=== PATIENT | male | born 1955 | race Caucasian/White ===

== ENCOUNTER 2022-01-08 17:41 | Inpatient (IN) | payer MEDICARE ==
[~2022-01-08] VITALS: Ht 157.5 cm; Wt 69.3 kg
[~2022-01-08 17:41] MED LIST: COMPLETE SENIOR1 TA1 PO; NEURONTIN300 MG/CAP PO; NORVASC2.5 MG PO; PRILOSEC 20MG20 MG PO; VASOTEC 10M10 MG/TAB PO; ZOCOR 20MG20 MG PO
[2022-01-08 18:46] LABS: BASO % 0.2 % (0.0-2.0); EOS # 0.1 K/mm3 (0.0-0.7); EOS % 0.5 % (0.0-4.0); GRAN # 11.6 K/mm3 (1.4-6.5); HEMATOCRIT 42.4 % (42.0-52.0); HEMOGLOBIN 14.5 g/dl (13.5-18.0); LYMPH # 0.4 K/mm3 (1.2-3.4); LYMPH % 3.3 % (20.0-51.0); MEAN CELL VOLUME 93 fl (80.0-100.0); MEAN CORPUSCULAR HEMOGLOBIN 32 pg (27-31); MEAN CORPUSCULAR HGB CONC 34 g/dl (33.0-37.0); MEAN PLATELET VOLUME 10.1 fl (7.4-10.4); MONO # 0.7 K/mm3 (0.1-0.6); MONO % 5.5 % (1.7-9.3); PLATELET COUNT 249 K/mm3 (130-400); RED BLOOD COUNT 4.56 M/mm3 (4.20-5.60); REDCELL DISTRIBUTION WIDTH-CV 14.8 % (11.5-14.5)
[2022-01-08 19:03] LABS: ALBUMIN 2.6 gm/dL (3.4-4.8); BILIRUBIN,TOTAL 0.5 mg/dL (0.2-1.2); C-REACTIVE PROTEIN 31.1 mg/dL (0.00-0.50); CALCIUM 8.9 mg/dL (8.4-10.2); CREATININE, serum 0.78 mg/dL (0.72-1.25); POTASSIUM 3.4 mmol/L (3.5-4.5); TOTAL PROTEIN 6.8 gm/dL (6.2-8.1)
[2022-01-08 19:33] LABS: COLLECTION METHOD CLEAN CATCH
[2022-01-08 19:49] LABS: MUCOUS Present (NOT PRESENT); PH 5 (5-8); SQUAMOUS EPITHELIAL None Seen /hpf (0-10); URINE APPEARANCE Clear (CLEAR/HAZY); URINE BACTERIA None Seen /hpf (NONE SEEN); URINE BILIRUBIN Negative (NEGATIVE); URINE BLOOD 1+ (NEGATIVE); URINE COLOR Yellow (YELLOW); URINE GLUCOSE Negative (NEGATIVE); URINE KETONE 2+ (NEGATIVE); URINE LEUKOCYTE ESTERASE Trace (NEGATIVE); URINE NITRATE Negative (NEGATIVE); URINE PROTEIN(semi-quant) Negative (NEGATIVE); URINE RBC 0-2 /hpf (0-2); URINE UROBILINOGEN Negative (NEGATIVE)
[2022-01-08] MEDS ORDERED: FLAGYL500 MG PO (22:08)
[2022-01-08] MEDS ORDERED: LEVAQUIN 750MG750 M1 PO (22:09)
[2022-01-08 22:20] VITALS: BP 118/67; PULSE 90; TEMP 98.7
[2022-01-08 23:40] VITALS: BP 108/59; PULSE 74; TEMP 98.3
--- NOTE | 2022-01-09 01:13 | NUR ---
PT SLEEPING WITH SNORUS RESP.
[2022-01-09 04:16] VITALS: BP 105/56; PULSE 73; TEMP 98.2
[2022-01-09 06:41] LABS: HEMATOCRIT 39.6 % (42.0-52.0); HEMOGLOBIN 13.2 g/dl (13.5-18.0); MEAN CELL VOLUME 95 fl (80.0-100.0); MEAN CORPUSCULAR HEMOGLOBIN 32 pg (27-31); MEAN CORPUSCULAR HGB CONC 33 g/dl (33.0-37.0); MEAN PLATELET VOLUME 11.2 fl (7.4-10.4); PLATELET COUNT 217 K/mm3 (130-400); RED BLOOD COUNT 4.16 M/mm3 (4.20-5.60); REDCELL DISTRIBUTION WIDTH-CV 15.1 % (11.5-14.5)
[2022-01-09 06:53] LABS: C-REACTIVE PROTEIN 25.26 mg/dL (0.00-0.50); CALCIUM 8.3 mg/dL (8.4-10.2); CREATININE, serum 0.66 mg/dL (0.72-1.25); POTASSIUM 3.7 mmol/L (3.5-4.5)
[2022-01-09 07:35] VITALS: BP 131/63; PULSE 80; TEMP 97.9
[2022-01-09 07:52] LABS: BAND 2 % (0-10); EOSINOPHIL 1 % (0-4); LYMPHOCYTE 10 % (20.0-51.0); NEUTROPHILS 84 % (42.0-75.2)
[2022-01-09 07:53] LABS: PLATELET ESTIMATE NORMAL (NORMAL); TARGET CELLS 1+
--- NOTE | 2022-01-09 09:19 | NUR ---
Social Work student met with patient to discuss discharge planning. Patient states that he lives in [place], [place] by himself. The patient sees Dr. Tameka Tomas for primary care, and he receives his medications from [facility]. When asked by social work if he has any problems affording those medications, he said, "I'm gettin' by." Patient does not utilize any durable medical equiptment at home and he is independent with his ADL's. Patient has not filled out a DPOA-HC prior to this hospital visit, and he is not interested in doing one right now. Therefore, SW sought to find next of kin. Patient's parents are , he is not , and he has no kids. Patient has one sister, Avril(ph#[phone]), and three brothers: Karel, Teddy, and Jonh. Discharge plan: Home
--- NOTE | 2022-01-09 09:32 | NUR ---
Initial visit; Patient thanked Intermediate Card Tender for offering God's blessings.
[2022-01-09 11:25] VITALS: BP 126/64; PULSE 78; TEMP 98.5
--- NOTE | 2022-01-09 14:00 | NUR ---
Received report from LAMONTE Loo. Pt resting in bed at this time with complaints of pain 12/26. Pt reports that it does get worse with movement. He states that his pain is the same as it has been, no better/no worse. He is aware that he is to not have anything to eat or drink. Bowel sounds active, and reports passing gas, heart rate regular. IV with fluids infusing. No needs verbalized, call light within reach
--- NOTE | 2022-01-09 14:18 | NUR ---
Assessment completed, alert/oriented, vital signs stable, reports pain is ok at rest/ more pain with ambulation, abd distended but soft and BS+, lungs CTA/ no resp.difficulty, heart RRR/ distal pulses are palpable, denies needs, will continue to monitor
[2022-01-09 15:42] VITALS: BP 142/76; PULSE 73; TEMP 98.7
--- NOTE | 2022-01-09 18:36 | NUR ---
Pt remains the same. Reports that his pain is still the same. He states that sometimes he does not feel any pain and other times it really bothers him. Pt is steady on his feet to the restroom. Pt reports that he is having urges to smoke. Offered to ask for nicotine patch, but pt denies.
--- NOTE | 2022-01-09 19:15 | NUR ---
Bedside shift report received, assumed care for shift leader. Assessment complete. A&Ox3. Denies nausea/shortness of breath. Rating pain 4/10 to abdomen-intermittent cramping. Denies need for intervention but states will call if worsending. D5 1/2NS with 20KCL to right forearm IV-infusing at 100ml/hr. Plan of care discussed for this shift to include meds/pain control/calling for questions/concerns. Verbalizes understanding. Call light in reach.Will monitor.
[2022-01-09 21:03] VITALS: BP 137/74; PULSE 66; TEMP 99.3
[2022-01-10] VITALS (8 sets, daily range): BP systolic 116–148; BP diastolic 66–87; PULSE 70–122; TEMP 98.1–99.4
--- NOTE | 2022-01-10 01:20 | NUR ---
Called with c/o pain to abdomen-described as sharp intermittent pains-rating pain 6/10. Morphine given per dr order.
[2022-01-10 05:52] LABS: HEMATOCRIT 40.7 % (42.0-52.0); HEMOGLOBIN 13.5 g/dl (13.5-18.0); MEAN CELL VOLUME 96 fl (80.0-100.0); MEAN CORPUSCULAR HEMOGLOBIN 32 pg (27-31); MEAN CORPUSCULAR HGB CONC 33 g/dl (33.0-37.0); MEAN PLATELET VOLUME 10.3 fl (7.4-10.4); PLATELET COUNT 294 K/mm3 (130-400); RED BLOOD COUNT 4.23 M/mm3 (4.20-5.60); REDCELL DISTRIBUTION WIDTH-CV 15.1 % (11.5-14.5)
[2022-01-10 06:01] LABS: C-REACTIVE PROTEIN 15.49 mg/dL (0.00-0.50); CREATININE, serum 0.61 mg/dL (0.72-1.25); POTASSIUM 3.3 mmol/L (3.5-4.5)
--- NOTE | 2022-01-10 07:46 | NUR ---
Pt having complaints of increase in pain, now rating 6/10. PRN pain medication given. PT states that pain continues to come and go with intermittent sharp pains. Discussed letting the pain medication start working and him taking a shower. Pt denies any other needs. Pt is quiet and soft spoken.
--- NOTE | 2022-01-10 11:25 | NUR ---
Pt up in the room getting his teeth brushed. He has been in and took a shower. Dr Kumar in to see pt. Pt reports that he is currently not having any pain at all, but does not have an appetite at this time. All questions answered, no needs at this time
--- NOTE | 2022-01-10 12:30 | NUR ---
Pt resting in bed. He is now having complaints of pain. PRN pain medication given. Pt does have visitors in the room. Gave pt ice chips and educated on clear liquid diet. Pt stated he did not want anything other than ice chips
--- NOTE | 2022-01-10 17:13 | NUR ---
Pt resting in bed. Pt does not use call light. Informed him that if he is having increase in pain, to use his call light. Pt appears to be comfortable, but states he is having a lot of pain. Pt appears to be paranoid when in room. He consistently stares out in the allen and is looking around the room. Pt reported that if he had some beer, he would feel better. When asked about alcohol use, pt stated that he does drink beer daily. Pt continus to state that he does not want anything other than the ice chips. Pt also questions if his IV fluids are infusing. He watches the fluid level. PRN pain medication given, call light within reach
--- NOTE | 2022-01-10 22:30 | NUR ---
SECOND IV STARTED TO RT. FOREARM.
--- NOTE | 2022-01-11 02:14 | NUR ---
Patient stating pain is 5/10 and requesting morphine. Morphine administered and will continue to monitor pain level
--- NOTE | 2022-01-11 02:30 | NUR ---
Shift assessment performed. Patient alert and oriented. VSS. Patient here for diverticulitis. PM meds administered. A second IV site was started due to IV ABX and non-compatible fluids running concurrently. Patient is ambulatory to the bathroom and complains of some pain in abdomen, requests morphine when pain rises above a 5. Will continue to monitor pain level.
[2022-01-11 04:07] VITALS: BP 131/73; PULSE 70; TEMP 98.4
[2022-01-11 07:04] LABS: HEMATOCRIT 46.2 % (42.0-52.0); MEAN CELL VOLUME 97 fl (80.0-100.0); MEAN CORPUSCULAR HEMOGLOBIN 31 pg (27-31); MEAN CORPUSCULAR HGB CONC 33 g/dl (33.0-37.0); MEAN PLATELET VOLUME 10.2 fl (7.4-10.4); PLATELET COUNT 346 K/mm3 (130-400); RED BLOOD COUNT 4.77 M/mm3 (4.20-5.60); REDCELL DISTRIBUTION WIDTH-CV 15.1 % (11.5-14.5)
[2022-01-11 07:08] VITALS: BP 143/81; PULSE 85; TEMP 98
[2022-01-11 07:21] LABS: C-REACTIVE PROTEIN 17.78 mg/dL (0.00-0.50); CALCIUM 8.5 mg/dL (8.4-10.2); CREATININE, serum 0.64 mg/dL (0.72-1.25); POTASSIUM 3.5 mmol/L (3.5-4.5)
[2022-01-11 12:48] VITALS: BP 141/80; PULSE 85; TEMP 98.7
--- NOTE | 2022-01-11 14:30 | NUR ---
PATIENT'S 2ND IV SITE WENT BAD. IV REMOVED, SPOKE WITH AND HE WAS OK WITH NOT STARTING ANOTHER IV SITE. GAVE VERBAL PERMISSION TO CHANGE IV FLUIDS FROM D51/2 20K TO NS TO TRY TO PRESERVE CURRENT IV SITE.
[2022-01-11 16:20] VITALS: BP 136/71; PULSE 73; TEMP 98.6
[2022-01-11 19:38] VITALS: BP 132/73; PULSE 71; TEMP 98.7
--- NOTE | 2022-01-11 20:30 | NUR ---
PT IN BED. DENIES PAIN AT THIS TIME. ABD DISTENDED, BS HYPERACTIVE. PT REPORTS LOOSE STOOLS, ASKED TO SAVE NEXT STOOL FOR NURSE TO SEE, VERBALIZED UNDERSTANDING. REPORTS NAUSEA, NO EMESIS. IV SITE TO RFA WITH IVF INFUSING WITHOUT PROBLEM. FLAT AFFECT.
[2022-01-12] VITALS (14 sets, daily range): BP systolic 112–149; BP diastolic 52–80; PULSE 50–79; TEMP 97.6–98.7
--- NOTE | 2022-01-12 00:33 | NUR ---
PT TOLD PCT HE WAS CLOSE TO VOMITING AND WANTS TO GO TO SURGERY "NOW". MEDICATED PT WITH ZOFRAN 4MG IVP AND MORPHINE 2MG IVP AT THIS TIME. DISCUSSED PLAN FOR DR BAR TO SEE PT IN THE AM TO DETERMINE GOING TO SURGERY OR NOT. REASSURED PT HIS VITALS WERE STABLE, HE REPORTS NO FURTHER DIARRHEA, DID ASK PT TO SAVE STOOL IF HE HAS ONE, VERBALIZED UNDERSTANDING. ENCOURAGED PT TO REST.
--- NOTE | 2022-01-12 04:00 | NUR ---
PT REPORTS MILD NAUSEA, NO EMESIS AFTER ZOFRAN GIVEN.
--- NOTE | 2022-01-12 06:00 | NUR ---
PT HAS LOOSE STOOL, FLAKY IN APPEARANCE, SLIGHTLY DARK GREEN IN COLOR, MODERATE AMOUNT. PT REPORTS THIS IS HIS 2ND STOOL FOR THE NIGHT.
[2022-01-12 07:41] LABS: HEMOGLOBIN 13.8 g/dl (13.5-18.0); MEAN CELL VOLUME 96 fl (80.0-100.0); MEAN CORPUSCULAR HEMOGLOBIN 32 pg (27-31); MEAN CORPUSCULAR HGB CONC 33 g/dl (33.0-37.0); MEAN PLATELET VOLUME 9.6 fl (7.4-10.4); PLATELET COUNT 310 K/mm3 (130-400); RED BLOOD COUNT 4.38 M/mm3 (4.20-5.60); REDCELL DISTRIBUTION WIDTH-CV 15.2 % (11.5-14.5)
[2022-01-12 08:04] LABS: C-REACTIVE PROTEIN 11.97 mg/dL (0.00-0.50); CREATININE, serum 0.6 mg/dL (0.72-1.25); POTASSIUM 4.1 mmol/L (3.5-4.5)
--- NOTE | 2022-01-12 19:30 | NUR ---
PT IN BED, HAS MIDLINE DRSG WITH SMALL SHADOWING NOTED, CIRCLED PERIMETER AT THIS TIME. SET UP BUTTON SEWING MACHINE OPERATOR DILAUDID WITH VERIFICATION FROM GLENROY ABURTO. HAS IVF TO LEFT FOREARM, SITE WITHOUT REDNESS OR SWELLING. PT RATING PAIN TO ABD 6/10 BEFORE BUTTON SEWING MACHINE OPERATOR INITIATED. LOPES TO BSD WITH YELLOW URINE.
--- NOTE | 2022-01-12 21:00 | NUR ---
PT REPORTS PAIN 3/10 TO ABD, USING TAPING MACHINE OPERATOR NEEDED. TAKING SIPS/CHIPS WITHOUT NAUSEA. SCDS ON. CALL LIGHT WITHIN REACH. IV ZOSYN INFUSING WITHOUT PROBLEM.
[2022-01-13] VITALS (9 sets, daily range): BP systolic 125–154; BP diastolic 57–80; PULSE 60–72; TEMP 97.8–98.3
--- NOTE | 2022-01-13 05:00 | NUR ---
PT USING ASSOCIATE PROFESSOR OF KINESIOLOGY EFFECTIVELY. DENIES NEEDS AT THIS TIME.
[2022-01-13 06:57] LABS: HEMATOCRIT 42.4 % (42.0-52.0); HEMOGLOBIN 13.7 g/dl (13.5-18.0); MEAN CELL VOLUME 98 fl (80.0-100.0); MEAN CORPUSCULAR HEMOGLOBIN 32 pg (27-31); MEAN CORPUSCULAR HGB CONC 32 g/dl (33.0-37.0); MEAN PLATELET VOLUME 10.7 fl (7.4-10.4); PLATELET COUNT 334 K/mm3 (130-400); RED BLOOD COUNT 4.35 M/mm3 (4.20-5.60); REDCELL DISTRIBUTION WIDTH-CV 15.2 % (11.5-14.5)
[2022-01-13 06:59] LABS: ALBUMIN 2.2 gm/dL (3.4-4.8); BILIRUBIN,TOTAL 0.3 mg/dL (0.2-1.2); CALCIUM 7.5 mg/dL (8.4-10.2); CREATININE, serum 0.61 mg/dL (0.72-1.25); POTASSIUM 4.4 mmol/L (3.5-4.5); TOTAL PROTEIN 5.7 gm/dL (6.2-8.1)
[2022-01-13 10:26] LABS: MAGNESIUM 2.2 mg/dL (1.6-2.6); PHOSPHOROUS 2.6 mg/dL (2.3-4.7)
[2022-01-14] VITALS (10 sets, daily range): BP systolic 146–154; BP diastolic 69–81; PULSE 58–69; TEMP 97.9–99.3
[2022-01-14 06:41] LABS: HEMOGLOBIN 12.9 g/dl (13.5-18.0); MEAN CELL VOLUME 98 fl (80.0-100.0); MEAN CORPUSCULAR HEMOGLOBIN 32 pg (27-31); MEAN CORPUSCULAR HGB CONC 32 g/dl (33.0-37.0); MEAN PLATELET VOLUME 10.5 fl (7.4-10.4); PLATELET COUNT 296 K/mm3 (130-400); RED BLOOD COUNT 4.08 M/mm3 (4.20-5.60); REDCELL DISTRIBUTION WIDTH-CV 15.1 % (11.5-14.5)
[2022-01-14 06:58] LABS: CALCIUM 7.6 mg/dL (8.4-10.2); CREATININE, serum 0.57 mg/dL (0.72-1.25); MAGNESIUM 2.1 mg/dL (1.6-2.6); PHOSPHOROUS 2.4 mg/dL (2.3-4.7); POTASSIUM 3.9 mmol/L (3.5-4.5)
--- NOTE | 2022-01-14 07:15 | NUR ---
Assessment complete. Nasal cannula at 1L/min measuring ETCO2. Skin intact, nares normal. PICC in right arm running clinimix at 42ml/hr. PAULINA wrap covering site, no drainage or redness to extremity. Pulses palpable. IV line placed in left forearm running sodium chloride at 30ml/hr with piperacillin and tazobactam at 25ml/hr. No redness or drainage noted at site. Patient has AIR CARGO GROUND OPERATIONS SUPERVISOR pump with hydropmorphone, patient states he is pushing button about once per hour. Dressing on abdomen intact with quarter size serosanguinous drainage. Marked by previous shift, will continue to monitor. Quick catheter in place with clear, yellow urine draining. CAUTI care provided. Patient has SCDs on, peripheral pulses palpable. Patient is resting comfortable.
--- NOTE | 2022-01-14 10:28 | NUR ---
Agree with student nurses assessment of the patient. A&Ox4. VSS 1L NC O2. Midline incision CDI, with prior drainage site marked by previous shift, no additional drainage noted. IV CDI, fluids infusing. Patient tolerating sips/chips. Reporting having passed gas, but no BM. Call light within reach
--- NOTE | 2022-01-14 20:00 | NUR ---
PT IN BED, IS ALERT AND ORIENTED X4. HAS RT PICC WITH TPN/LIPIDS INFUSING. HAS AGRICULTURE SCIENCE TEACHER DILAUDID NEEDED. LOPES TO BSD WITH YELLOW URINE. MIDLINE INCISION PAPER RULER, BELLA INTACT. PT DENIES FLATUS. SCDS ON.
--- NOTE | 2022-01-14 20:40 | NUR ---
NEW TOOL ROOM ATTENDANT DILAUDID SYRINGE HUNG.
[2022-01-15 00:12] VITALS: BP 138/69; PULSE 66; TEMP 98.1
[2022-01-15 03:42] VITALS: BP 144/77; PULSE 73; TEMP 98.4
--- NOTE | 2022-01-15 05:37 | NUR ---
ASSISTED TO BATHROOM, PT REPORTS FLATUS. HAVING NAUSEA, ZOFRAN GIVEN.
--- NOTE | 2022-01-15 05:52 | NUR ---
NO FLATUS OR BM, ASSISTED BACK TO BED.
[2022-01-15 06:03] LABS: BASO # 0.1 K/mm3 (0.0-0.2); BASO % 0.6 % (0.0-2.0); EOS # 0.4 K/mm3 (0.0-0.7); EOS % 3.8 % (0.0-4.0); GRAN # 7.9 K/mm3 (1.4-6.5); HEMATOCRIT 43.5 % (42.0-52.0); HEMOGLOBIN 14.7 g/dl (13.5-18.0); LYMPH % 9.5 % (20.0-51.0); MEAN CELL VOLUME 94 fl (80.0-100.0); MEAN CORPUSCULAR HEMOGLOBIN 32 pg (27-31); MEAN CORPUSCULAR HGB CONC 34 g/dl (33.0-37.0); MONO # 0.8 K/mm3 (0.1-0.6); MONO % 7.5 % (1.7-9.3); RED BLOOD COUNT 4.63 M/mm3 (4.20-5.60); REDCELL DISTRIBUTION WIDTH-CV 14.9 % (11.5-14.5)
[2022-01-15 06:09] LABS: PLATELET COUNT 411 K/mm3 (130-400)
[2022-01-15 06:38] LABS: CALCIUM 8.2 mg/dL (8.4-10.2); CREATININE, serum 0.6 mg/dL (0.72-1.25); PHOSPHOROUS 3.4 mg/dL (2.3-4.7); POTASSIUM 3.7 mmol/L (3.5-4.5)
[2022-01-15 07:27] VITALS: BP 129/80; PULSE 92; TEMP 98.5
--- NOTE | 2022-01-15 07:42 | NUR ---
PT STATES THAT HE IS FEELING NAUSEOUS BUT PAIN IS MINIMAL, IS SITTING UP IN CHAIR. PT REPORTS PASSING GAS X1 DURING NIGHT. PCT REPORTS THAT PT IS FREQUENTLY BURPING ET STUDENT NURSE REPORTS THAT PT IS DRY HEAVING. PT ENCOURAGED TO LIMIT INTAKE, DIET IS CLEAR LIQUIDS @ THIS TIME. MIDLINE INCISION IS WELL APPROXIMATED WITH BELLA INTACT. TPN INFUSING INTO PICC LINE.
--- NOTE | 2022-01-15 07:50 | NUR ---
Assessment complete. Patient states he is nauseous, unable to have more zofran at this time. Emesis basin next to patient. PICC line to right arm. No redness or edema to extremity, pulses palpable. Incision open to air. Brianne intact with scant serous drainage noted. Patient states pain comes and goes, doing OK at this time. Quick catheter in place with clear, yellow drainage. CAUTI care provided. Patient resting comfortably in bed.
--- NOTE | 2022-01-15 09:52 | NUR ---
GRANULAR OPERATOR PUMP DISCONTINUED. PT STATES THAT HE STILL HAS SOME NAUSEA BUT PAIN IS MILD. PT RESTING QUIETLY IN BED.
--- NOTE | 2022-01-15 10:10 | NUR ---
DC krishnan catheter with tip intact. 250ml was removed from krishnan bag prior to catheter removal. 8.5cc was pulled from balloon. Patient tolerated removal well. Educated to urinate in hat or urinal to continue accurate I/O. Patient had no concerns at this time.
[2022-01-15 10:44] VITALS: BP 134/71; PULSE 68; TEMP 99.1
[2022-01-15 15:31] VITALS: BP 133/69; PULSE 74; TEMP 98.8
[2022-01-15 19:11] VITALS: BP 152/65; PULSE 67; TEMP 98.2
--- NOTE | 2022-01-15 19:11 | NUR ---
PT SLEEPS ON ET OFF, CONTINUES TO BECOME DIZZY ET NAUSEOUS WITH MOVEMENT ET WHEN TRANSFERRING [place] [facility] [place]. PT HAS EATEN A SMALL AMOUNT OF JELLO, WILL HAVE SOUP ARRIVING FROM KITCHEN.
--- NOTE | 2022-01-15 19:13 | NUR ---
PT HAS BEEN RESTING QUIETLY IN BED MOST OF DAY, CONTINUES TO BE NAUSEOUS. PT HAS AMBULATED X3 IN HALLS WITH SBA, GAIT IS STEADY ET PT TOLERATES VERY WELL. TPN ET IVF INSFUSING INTO RIGHT PICC.
--- NOTE | 2022-01-15 20:11 | NUR ---
PT OUT AMBULATING IN HALLWAY WITH STAFF AND WALKER, GAIT STEADY.
--- NOTE | 2022-01-15 21:00 | NUR ---
PT IN BED, AMBULATED WITH STAFF EARLIER. DENIES NEED FOR PAIN MEDS AT THIS TIME. BELLA INTACT TO ABD, BS AUDIBLE, DISTENDED. PT HAS TPN/LIPIDS INFUSING TO RT PICC. PT VOIDING WITHOUT PROBLEM. MILD NAUSEA, NO NEED FOR ANTIEMETIC AT THIS TIME.
[2022-01-16 00:01] VITALS: BP 125/70; PULSE 67; TEMP 97.7
[2022-01-16 03:47] VITALS: BP 136/69; PULSE 64; TEMP 98.2
--- NOTE | 2022-01-16 06:00 | NUR ---
LABS OBTAINED FROM RT PICC. RATES ABD PAIN 3/10, DENIES NEED FOR PAIN MEDS. REFUSED ICE CHIPS, TAKING MINIMAL SIPS OF CLEARS. NO FLATUS THIS SHIFT.
[2022-01-16 06:53] LABS: CALCIUM 8.1 mg/dL (8.4-10.2); CREATININE, serum 0.58 mg/dL (0.72-1.25); PHOSPHOROUS 3.8 mg/dL (2.3-4.7); POTASSIUM 4.1 mmol/L (3.5-4.5)
[2022-01-16 07:17] VITALS: BP 127/75; PULSE 73; TEMP 99
--- NOTE | 2022-01-16 08:00 | NUR ---
PATIENT IS A&O AND INDEPENDENT IN ROOM. VSS. NO C/O PAIN OR NAUSEA. ABD IS DISTENDED WITH POSITIVE BOWL SOUNDS NOTED. PATIENT REPORTS HE IS NOW PASSING GAS BUT NO BM. ABD MIDLINE IS WELL APPROXIMATED WITH BELLA. TOLERATING CLEARS HOWEVER, PATIENT ASKING ABOUT GETING HIS DIET ADVNACED. TPN INFUSING INTO RIGHT UPPER ARM PICC PER ORDERS. PATIENT ENCOURAGED TO AMBULATE TO HELP WITH GAS. PATIENT GOING FOR WALK AFTER AM MEDS. HEAD TO TOE ASSESSMENT COMPLETE. NO OTHER NEEDS AT THIS TIME.
[2022-01-16 11:48] VITALS: BP 123/72; PULSE 70; TEMP 98.7
--- NOTE | 2022-01-16 13:23 | NUR ---
Patient observered up and walking the halls today with PT. Patient did will and PT is still recommending home. Patient's biggest barrier to discharge is his bowel function, which is being managed by the surgeon.
--- NOTE | 2022-01-16 14:00 | NUR ---
PATIENT HAS AMBULATED SEVERAL TIMES TODAY AND REPORTS HE IS PASSING A LITTLE MORE GAS. NO C/O N/V. TOLERATING FULL LIQUID DIET. WILL MONITOR.
[2022-01-16 15:48] VITALS: BP 110/60; PULSE 80; TEMP 98.6
--- NOTE | 2022-01-16 16:00 | NUR ---
PATIENT REPORTED HAVING A LOOSE STOOL, NOT OBSERVED. PATIENT ALSO REPORTS PASSING LOTS OF GAS TODAY. NAUSEA IS BETTER TODAY.
--- NOTE | 2022-01-16 19:24 | NUR ---
RECEIVED CHANGE OF SHIFT REPORT FROM DAY SHIFT RN. PATIENT RESTING IN BED DURING REPORT WITH NO NEEDS REPORTED. TPN/LIPIDS INFUSING PER RUE PICC WITH NO PROBLEMS AT THIS TIME.
[2022-01-16 20:33] VITALS: BP 134/68; PULSE 72; TEMP 98.6
--- NOTE | 2022-01-16 22:58 | NUR ---
PATIENT UP PER SELF IN ROOM WITH NO REPORTED PROBLEMS OR CONCERNS. REPORTS HAS PASSED MORE SMALL AMOUNTS OF LOOSE STOOLS, DENIES ANY DISCOMFORT AT THIS THIS TIME. DENIES CHEST PAIN/SOA/NAUSEA AT THIS TIME.
[2022-01-17 00:29] VITALS: BP 128/71; PULSE 70; TEMP 98.5
[2022-01-17 04:35] VITALS: BP 116/65; PULSE 75; TEMP 98.4
[2022-01-17 06:59] LABS: HEMATOCRIT 41.8 % (42.0-52.0); MEAN CELL VOLUME 95 fl (80.0-100.0); MEAN CORPUSCULAR HEMOGLOBIN 32 pg (27-31); MEAN CORPUSCULAR HGB CONC 34 g/dl (33.0-37.0); MEAN PLATELET VOLUME 10.4 fl (7.4-10.4); PLATELET COUNT 386 K/mm3 (130-400)
--- NOTE | 2022-01-17 07:05 | NUR ---
CHANGE OF SHIFT REPORT GIVEN TO DAY SHIFT RNJELLY
[2022-01-17 07:09] VITALS: BP 118/58; PULSE 71; TEMP 98.3
[2022-01-17 07:09] LABS: CALCIUM 8.4 mg/dL (8.4-10.2); CREATININE, serum 0.63 mg/dL (0.72-1.25); MAGNESIUM 2.2 mg/dL (1.6-2.6); PHOSPHOROUS 3.5 mg/dL (2.3-4.7); POTASSIUM 4.5 mmol/L (3.5-4.5)
[2022-01-17] MEDS ORDERED: NORCO 325 MG-51 TAB PO (08:48)
--- NOTE | 2022-01-17 11:04 | NUR ---
PT HAS BEEN UP AMBULATING IN HALLWAY, SEEN WALKING BY NURSES STATION MULTIPLE TIMES. TPN ET ZOSYN INFUSING INTO PICC LINE. PT REPORTS HAVING SEVERAL LOOSE STOOLS THIS MORNING WITH SOME ABDOMINAL PAIN. BELLA INTACT TO MIDLINE INCISION.
[2022-01-17 11:16] VITALS: BP 112/61; PULSE 79; TEMP 98.6
[2022-01-17 15:36] VITALS: BP 107/55; PULSE 78; TEMP 98.8
--- NOTE | 2022-01-17 18:30 | NUR ---
PT ARRIVES TO ROOM FROM ED @ 1740. PT IS TRANSFERRED FROM ER CART TO BED WITH 3 ASSIST ET SLIDEBOARD. PT IS ALERT & ORIENTED, COOPERATIVE ET PLEASANT. PT HAS GLASSES WITH HIM BUT STATES THAT HIS BILATERAL HEARING AIDS ARE @ HOME. PT STATES THAT BOTH HIS DAUGHTER ET HAVE RECENTLY PASSED. PT LIVES ALONE. PT STATES THAT HIS SONS ARE PLANNING ON PROBABLY COMING TO SEE HIM TOMORROW. PT HAS BEEN INCONTINENT OF A LARGE AMOUNT OF URINE. PT IS ABLE TO LIFT HIS HIPS ET LEGS TO ASSIST IN PUTTING CLEAN PANTS. HIGH FALL PRECAUTIONS ARE PUT INTO PLACE. PT IS TALKATIVE, DENIES HUNGER, IS ENCOURAGED TO DRINK WATER. IVF INFUSING INTO LEFT FA. BED ALARM IS ON. CALL LIGHT WITHIN REACH.
[2022-01-17 20:20] VITALS: BP 131/67; PULSE 78; TEMP 98.7
--- NOTE | 2022-01-17 21:02 | NUR ---
PT RESTING IN BED. PROVIDED HEMORRHOID OINTMENT. NO FURTHER NEEDS. TPN AND LIPIDS INFUSING TO RT PICC.
[2022-01-18] VITALS (7 sets, daily range): BP systolic 109–128; BP diastolic 55–68; PULSE 66–74; TEMP 98.1–99.1
--- NOTE | 2022-01-18 05:21 | NUR ---
PT INSTRUCTED ON 12 HOUR URINE ORDER.
--- NOTE | 2022-01-18 17:20 | NUR ---
TPN HAS BEEN DCED. PT HAS BEEN AMBULATING INDEPENDENTLY FREQUENTLY IN HIS ROOM ET HALLWAY. PT STATES THAT HE HAS NOT HAD MUCH ABDOMINAL PAIN BUT GETS INTERMITTENT HEADACHES WHEN STANDING UP. PT IS ENCOURAGED TO DRINK MORE WATER. DENIES OTHER NEEDS. MATTHEW IS INFUSING PIGGYBACK INTO PT'S RIGHT PICC.
--- NOTE | 2022-01-19 02:55 | NUR ---
Report received from Leila ABURTO. Patient here due to small bowel resection. Midline incision is held together with laurent and is currently open to air. Patient has had an uneventful evening thus far. Patient was seen multiple times ambulating the halls; gait has been steady with no signs of weakness or pain. Patient did complain about mild pain to his abdomen; PRN tylenol was provided. Patient has no had any other complaints at this time. Will continue to monitor and call light within reach.
[2022-01-19 03:53] VITALS: BP 124/64; PULSE 69; TEMP 98.6
[2022-01-19 07:58] VITALS: BP 125/65; PULSE 74; TEMP 98
[2022-01-19 11:33] VITALS: BP 136/59; PULSE 82; TEMP 98.2
--- NOTE | 2022-01-19 12:39 | NUR ---
PT GIVEN DISCHARGE INSTRUCTIONS ET EDUCATION, DENIES QUESTIONS @ THIS TIME. BELLA IN PLACE TO MIDLINE INCISION. PICC TO BE REMOVED BY THE CHARGE NURSE AFTER 1300 R/T LOVENOX. PT STATES THAT HIS RIDE TO TAKE HIM HOME WILL BE HERE AROUND 3PM. DENIES NEEDS, IS EATING LUNCH.
--- NOTE | 2022-01-19 13:22 | NUR ---
PATIENT DISCHARGING HOME TODAY, ORDERS TO DC PICC LINE. NOTED LOVENOX DOSE THIS AM. CONFIRMED WITH PHARMACY ON PICC REMOVAL POST LOVENOX. DC'D RIGHT UPPER ARM PICC LINE PER ORDERS, PICC TIP INTACT, AND PATIENT TOLERATED WELL. APPLIED 4X4 GAUZE AND OCCLUSIVE PRESSURE BANDAGE. PATIENT LAYING FLAT AND DOING WELL.
--- NOTE | 2022-01-19 15:13 | NUR ---
PT DISCHARGED TO HOME @ 1510. PT TAKEN DOWNSTAIRS VIA WC PUSHED BY SHIVANI MOHAMUD.
== END 2022-01-19 15:10 | disposition home or self-care (01) | DRG 330 ==
LOC: COL.ER 17:41 → SURG 21:14
PROVIDERS: Nurse Practitioner; ADMIT Surgery
PROC: 0DT80ZZ Resection of Small Intestine, Open Approach (ICD-10-PCS; principal; 2022-01-12 13:00)
PROC: 02HV33Z Insertion of Infusion Device into Superior Vena Cava, Percutaneous Approach (ICD-10-PCS; 2022-01-13)
DX: K63.1 Perforation of intestine (nontraumatic) (principal); E44.0 Moderate protein-calorie malnutrition; K91.89 Other postprocedural complications and disorders of digestive system; K56.7 Ileus, unspecified; I10 Essential (primary) hypertension; F41.9 Anxiety disorder, unspecified; E78.5 Hyperlipidemia, unspecified; F17.210 Nicotine dependence, cigarettes, uncomplicated; K21.9 Gastro-esophageal reflux disease without esophagitis; E87.6 Hypokalemia; K64.9 Unspecified hemorrhoids; Y83.8 Other surgical procedures as the cause of abnormal reaction of the patient, or of later complication, without mention of misadventure at the time of the procedure; Z68.27 Body mass index [BMI] 27.0-27.9, adult
CPT/HCPCS: A4314; C1751; C1892; C9113; J0330; J0690; J1100; J1170; J1650; J1885; J2270; J2405; J2543; J2704; J3010; J3411; J3475; J3480; J7030; Q9967

== ENCOUNTER → 2023-02-12 | Outpatient (CLI) | payer MEDICARE ==
[~2023-02-12] VITALS: Ht 157.5 cm; Wt 68.2 kg
[~2023-02-12] MED LIST changes: +FLAGYL500 MG PO; +LEVAQUIN 750MG750 M1 PO; +NORCO 325 MG-51 TAB PO; +REMERON 15M15 MG/TA1 PO; +XANAX .25M0.25 MG/TA PO
[2023-02-12 12:49] VITALS: BP 146/86; PULSE 102; TEMP 98.1
[2023-02-12 15:00] VITALS: BP 147/87; PULSE 74
== END ==
LOC: COL.RAD 12:23
DX: M51.36 Other intervertebral disc degeneration, lumbar region (principal)
CPT/HCPCS: J3301

== ENCOUNTER → 2023-08-11 | Outpatient (CLI) | payer MEDICARE | LOC: MHCPAIN 09:44 | DX: M54.16 Radiculopathy, lumbar region (principal); M47.896 Other spondylosis, lumbar region | CPT/HCPCS: G0463 ==

== ENCOUNTER → 2024-02-11 | Outpatient (CLI) | payer MEDICARE | LOC: COL.RAD 13:04 | DX: R60.0 Localized edema (principal); R11.0 Nausea; R10.13 Epigastric pain ==

== ENCOUNTER → 2024-02-12 | Outpatient (CLI) | payer MEDICARE | LOC: COL.RAD 12:28 | DX: M47.816 Spondylosis without myelopathy or radiculopathy, lumbar region (principal); R10.13 Epigastric pain; R11.0 Nausea ==